=== PATIENT | female | born 2000 | race Caucasian/White ===

== ENCOUNTER → 2023-11-06 | Outpatient (CLI) | payer OTHER ==
[2023-11-06 09:53] LABS: BASO # 0.1 10^3/uL (0.0-0.2); BASO % 0.6 % (0.0-1.0); EOS # 0.1 10^3/uL (0.0-0.5); EOS % 1.4 % (0.0-3.0); HEMATOCRIT 40.3 % (36.0-47.0); HEMOGLOBIN 13.3 g/dl (12.0-15.5); LYMPH # 2.2 10^3/uL (1.5-5.0); LYMPH % 25.2 % (24.0-44.0); MEAN CORPUSCULAR HEMOGLOBIN 27.9 pg (27.0-33.0); MEAN CORPUSCULAR VOLUME 84.7 fl (80.0-96.0); MONO # 0.9 10^3/uL (0.0-0.8); NEUTROPHILS # 5.3 10^3/uL (1.5-8.5); NEUTROPHILS % 62.2 % (36.0-66.0); PLATELET COUNT, AUTOMATED 335 10^3/uL (150-450); RED BLOOD COUNT 4.76 10^6/uL (4.00-5.40); WHITE BLOOD COUNT 8.5 10^3/uL (4.0-10.0)
[2023-11-06 10:16] LABS: CORTISOL AM 25.9 UG/DL (4.3-22.4)
[2023-11-06 10:19] LABS: ALBUMIN 3.7 G/DL (3.2-5.2); ALKALINE PHOSPHATASE 98 U/L (46-116); ALT/SGPT 17 U/L (7.0-40); AST/SGOT 13 U/L (<34); BILIRUBIN,TOTAL 0.6 MG/DL (0.3-1.2); BLOOD UREA NITROGEN 8 MG/DL (9-23); CALCIUM LEVEL 9.4 MG/DL (8.5-10.1); CARBON DIOXIDE LEVEL 29 MMOL/L (20-31); CHLORIDE LEVEL 107 MMOL/L (98-107); CREATININE FOR GFR 0.68 MG/DL (0.55-1.30); GLOMERULAR FILTRATION RATE > 60.0 (>60); GLUCOSE, FASTING 94 MG/DL (60-100); IRON (FE) 65 UG/DL (50-170); PERCENT SATURATION 17.3 % (13.2-45.0); POTASSIUM SERUM 4.2 MMOL/L (3.5-5.1); SODIUM LEVEL 139 MMOL/L (136-145); THYROID STIMULATING HORMONE 2.872 uIU/ML (0.55-4.78); TOTAL IRON BINDING CAPACITY 376 UG/DL (250-425); TOTAL PROTEIN 7.3 G/DL (5.7-8.2)
[2023-11-06 10:20] LABS: FREE T4 1.31 NG/DL (0.89-1.76); VITAMIN B12 LEVEL 732 PG/ML (211-911)
[2023-11-06 10:49] LABS: HEMOGLOBIN A1c 5.2 % (4.0-6.0)
== END ==
LOC: M LAB 09:12
PROVIDERS: ATTEND Nurse Practitioner Adult Health
DX: Z13.29 Encounter for screening for other suspected endocrine disorder (principal)

== ENCOUNTER → 2024-01-16 | Outpatient (CLI) | payer OTHER | LOC: M LAB 07:28 | PROVIDERS: ATTEND Nurse Practitioner Family | DX: E27.8 Other specified disorders of adrenal gland (principal) | CPT/HCPCS: 36415; 82533; G0480 ==

== ENCOUNTER 2024-11-12 10:57 | Day surgery (SDC) | payer OTHER ==
[~2024-11-12] VITALS: Ht 162.6 cm; Wt 77.8 kg
[2024-11-12] MEDS ORDERED: AMIT10TA11 PO (11:16)
[2024-11-12 12:06] LABS: KETONE, URINE AUTO RFX NEGATIVE (NEGATIVE); MUCUS, URINE RFX SMALL (NEGATIVE); NITRITE, URINE AUTO RFX NEGATIVE (NEGATIVE); RBC, URINE AUTO RFX 1 /HPF (0-3); SQUAM EPITHELIAL CELL UR AURFX 13 /HPF (0-6)
[2024-11-12 12:07] LABS: LEUKOCYTE ESTERASE UR AUTO RFX 2+ (NEGATIVE); WBC, URINE AUTO RFX 14 /HPF (0-3)
[2024-11-12 12:10] LABS: BASO # 0.1 10^3/uL (0.0-0.2); BASO % 0.6 % (0.0-1.0); EOS # 0.1 10^3/uL (0.0-0.5); EOS % 0.7 % (0.0-3.0); LYMPH # 1.7 10^3/uL (1.5-5.0); LYMPH % 12.6 % (24.0-44.0); MONO # 1.0 10^3/uL (0.0-0.8); MONO % 7.4 % (2.0-8.0); NEUTROPHILS # 10.2 10^3/uL (1.5-8.5); NEUTROPHILS % 77.9 % (36.0-66.0); PLATELET COUNT, AUTOMATED 426 10^3/uL (150-450)
[2024-11-12 13:58] LABS: ALT/SGPT 26 U/L (7.0-40); AST/SGOT 46 U/L (<34); CALCIUM LEVEL 8.6 MG/DL (8.5-10.1); CARBON DIOXIDE LEVEL 25 MMOL/L (20-31); CHLORIDE LEVEL 103 MMOL/L (98-107); CREATININE FOR GFR 0.57 MG/DL (0.55-1.30); GLOMERULAR FILTRATION RATE > 90.0 (>60); POTASSIUM SERUM 5.2 MMOL/L (3.5-5.1); SODIUM LEVEL 138 MMOL/L (136-145)
[2024-11-12 14:03] LABS: HCG, SERUM QUALITATIVE NEGATIVE (NEGATIVE)
[2024-11-12] MEDS ORDERED: ISOVUE-370 76% 100 ML VIAL As Ordered ONE (14:56)
[2024-11-12 17:30] LABS: Trichomonas vaginalis (AMP) NOT DETECTED (NEGATIVE)
[2024-11-12] MEDS: KETOROLAC 30 MG/ML 1 ML VIAL IV ONE (17:50)
[2024-11-12 17:54] LABS: GC DNA AMPLIFICATION NEGATIVE (NEGATIVE)
[2024-11-12 18:18] LABS: BASO # 0.1 10^3/uL (0.0-0.2); BASO % 0.4 % (0.0-1.0); EOS # 0.1 10^3/uL (0.0-0.5); EOS % 0.3 % (0.0-3.0); LYMPH # 2.5 10^3/uL (1.5-5.0); LYMPH % 13.5 % (24.0-44.0); MONO # 1.0 10^3/uL (0.0-0.8); MONO % 5.5 % (2.0-8.0); NEUTROPHILS # 14.9 10^3/uL (1.5-8.5); NEUTROPHILS % 79.8 % (36.0-66.0); PLATELET COUNT, AUTOMATED 386 10^3/uL (150-450)
[2024-11-12] MEDS ORDERED: HOME MED LIST COMPLETE! XX SCH (21:25)
[2024-11-12] MEDS: LR 1,000 ML IV STA (21:31)
[2024-11-12] MEDS ORDERED: MIDAZOLAM INJ 2 MG/2 ML VIAL As Ordered ONE (21:54)
[2024-11-12] MEDS ORDERED: SUGAMMADEX SODIUM 500 MG/5 ML VIAL As Ordered ONE (21:56)
[2024-11-12] MEDS ORDERED: SILVER NITRATE APPLICATOR (1 = QTY 10) As Ordered ONE (21:56)
[2024-11-12] MEDS ORDERED: LIDOCAINE 2% 100 MG/5 ML SDV (FOR ANES.) As Ordered ONE (21:56)
[2024-11-12] MEDS ORDERED: ROCURONIUM BROMIDE 50MG/5ML VIAL As Ordered ONE (21:56)
[2024-11-12] MEDS ORDERED: dexmedeTOMIDine (4 MCG/ML) 200 MCG/50 ML BTL As Ordered ONE (21:59)
[2024-11-12] MEDS ORDERED: ONDANSETRON 4MG 2ML VIAL As Ordered ONE (22:00)
[2024-11-12] MEDS ORDERED: dexAMETHasone 4 MG/ML 1 ML VIAL As Ordered ONE (22:00)
[2024-11-12] MEDS ORDERED: ACETAMINOPHEN 1000MG/100ML IV BAG As Ordered ONE (22:29)
[2024-11-12] MEDS ORDERED: KETOROLAC 30 MG/ML 1 ML VIAL As Ordered ONE (23:02)
[2024-11-13] VITALS (8 sets, daily range): BP systolic 114–127; BP diastolic 72–80; TEMP 97.3–98.6; O2SAT 96–98
[2024-11-13] MEDS ORDERED: HYDROMORPHONE HCL 0.5 MG/0.5 ML SYRINGE IV PRN (00:35)
[2024-11-13] MEDS: ONDANSETRON 4MG 2ML VIAL IV PRN (00:40)
[2024-11-13] MEDS: LR 1,000 ML IV SCH ×2 (01:00→07:24)
[2024-11-13] MEDS ORDERED: ONDANSETRON 4MG 2ML VIAL IV PRN (01:25)
[2024-11-13] MEDS ORDERED: PERCOCET 5MG/325MG TAB PO PRN (01:25)
[2024-11-13] MEDS ORDERED: MORPHINE 4 MG/ML 1 ML VIAL IV PRN (01:25)
[2024-11-13] MEDS ORDERED: KETOROLAC 30 MG/ML 1 ML VIAL IV SCH (02:00)
[2024-11-13] MEDS: KETOROLAC 30 MG/ML 1 ML VIAL IV SCH (06:05)
[2024-11-13 06:50] LABS: PLATELET COUNT, AUTOMATED 362 10^3/uL (150-450)
[2024-11-13] MEDS: FLUZONE VACCINE TRI PF(25-26) 0.5ML SYRINGE IM.IMMUN ONE (10:40)
[2024-11-14] MEDS ORDERED: HYDR-3713 PO (18:49)
[2024-11-14] MEDS ORDERED: MIRA3350 PO (18:49)
== END 2024-11-13 11:16 | disposition home or self-care (01) ==
LOC: M ED 10:57 → M SDC 21:00 → M PED 11-13 00:51 → M SDC 11-13 11:16
PROVIDERS: ATTEND Obstetrics & Gynecology
DX: N83.02 Follicular cyst of left ovary (principal); K66.1 Hemoperitoneum; F41.9 Anxiety disorder, unspecified; R11.10 Vomiting, unspecified; Z79.899 Other long term (current) drug therapy
CPT/HCPCS: 36415; 58662; 74177; 76856; 80048; 80076; 81001; 83690; 84703; 85025; 85027; 87086; 87661; 87810; 87850; 88305; 90471; 90656; 96374; 96376; 99284; J0131; J0665; J1100; J1885; J2250; J2405; J2765; J3010; Q9967

== ENCOUNTER 2024-11-14 12:21 | Emergency (ER) | payer OTHER ==
[~2024-11-14] VITALS: Ht 162.6 cm; Wt 78.9 kg
[~2024-11-14 12:21] MED LIST: AMIT10TA11 PO
[2024-11-14] MEDS ORDERED: HOME MED LIST COMPLETE! XX SCH (16:50)
[2024-11-14] MEDS: ONDANSETRON 4MG 2ML VIAL IV ONE (17:37)
[2024-11-14] MEDS: MORPHINE 4 MG/ML 1 ML VIAL IV ONE (17:38)
[2024-11-14 17:52] LABS: PLATELET COUNT, AUTOMATED 324 10^3/uL (150-450)
[2024-11-14 18:22] VITALS: BP 106/68; TEMP 98.7; O2SAT 100
[2024-11-14] MEDS ORDERED: MIRA3350 PO (18:49)
[2024-11-14] MEDS ORDERED: HYDR-3713 PO (18:49)
[2024-11-14] MEDS: NORCO 5/325MG TABLET (HOME DOSE PACK) PO ONE (18:50)
== END 2024-11-14 19:08 | disposition home or self-care (01) ==
LOC: M ED 12:21
DX: N99.820 Postprocedural hemorrhage of a genitourinary system organ or structure following a genitourinary system procedure (principal); F41.9 Anxiety disorder, unspecified
CPT/HCPCS: 85027; 96374; 96375; 99284; J2405

== ENCOUNTER → 2025-01-16 | Outpatient (CLI) | payer OTHER ==
[~2025-01-16] MED LIST changes: +HYDR-3713 PO; +MIRA3350 PO
[2025-01-16 15:07] LABS: BASO # 0.1 10^3/uL (0.0-0.2); BASO % 0.7 % (0.0-1.0); EOS # 0.2 10^3/uL (0.0-0.5); EOS % 1.7 % (0.0-3.0); LYMPH # 2.3 10^3/uL (1.5-5.0); LYMPH % 26.5 % (24.0-44.0); MONO # 0.7 10^3/uL (0.0-0.8); MONO % 8.0 % (2.0-8.0); NEUTROPHILS # 5.4 10^3/uL (1.5-8.5); NEUTROPHILS % 62.6 % (36.0-66.0); PLATELET COUNT, AUTOMATED 420 10^3/uL (150-450)
[2025-01-16 15:39] LABS: IRON (FE) 36.0 UG/DL (50-170); PERCENT SATURATION 8.9 % (13.2-45.0)
[2025-01-16 15:40] LABS: FREE T4 1.47 NG/DL (0.89-1.76)
[2025-01-16 15:41] LABS: ESTRADIOL 29.8 PG/ML; LUTEINIZING HORMONE 1.9 mIU/ML; TOTAL 25(OH) VITAMIN D 35.8 NG/ML (20.0-100.0)
[2025-01-21 22:54] LABS: ESTROGENS TOTAL 76.0 pg/mL
[2025-01-25 17:12] LABS: TESTOSTERONE FREE (DIRECT) 6.4 pg/mL (0.1-6.4); TESTOSTERONE TOTAL FOR T&D 36.0 ng/dL (2-45)
== END ==
LOC: M LAB 14:48
PROVIDERS: ATTEND Nurse Practitioner Adult Health
DX: L68.0 Hirsutism (principal); R53.83 Other fatigue; L65.9 Nonscarring hair loss, unspecified